=== PATIENT | male | born 1995 ===

== ENCOUNTER 2017-08-17 12:53 | Emergency (ER) | payer OTHER ==
[2017-08-17 13:17] VITALS: BMI 138.8
[2017-08-17 13:22] VITALS: TEMP 97.3
[2017-08-17] MEDS ORDERED: Bacitracin 500 Units/gm Oint Foilpak UD TOP ONE (14:01)
[2017-08-17] MEDS ORDERED: Tdap Vaccine 0.5 ml Vial (10-64 yrs) IM ONE ×2 (14:01→14:51)
[2017-08-17] MEDS ORDERED: Lidocaine 2% Inj (20ml) INFIL ONE (14:01)
[2017-08-17] MEDS ORDERED: Bacitracin 500 Units/gm Oint Foilpak UD ONE (14:29)
[2017-08-17] MEDS ORDERED: Lidocaine Hydrochloride 5 ML INJ ONE (14:29)
--- NOTE | 2017-08-17 15:22 | C.PDOC ---
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 Patient denies numbness, weakness or any other complaints at this time. Time Seen by Provider: 08/17/17 13:30 Chief Complaint (Nursing): Abnormal Skin Integrity History Per: Patient History/Exam Limitations: no limitations Onset/Duration Of Symptoms: Days Current Symptoms Are (Timing): Still Present Past Medical History Reviewed: Historical Data, Nursing Documentation, Vital Signs Vital Signs: Last Vital Signs Temp 97.3 F L 08/17/17 13:17 Pulse 69 08/17/17 15:30 Resp 20 08/17/17 15:30 BP 116/67 08/17/17 15:30 Pulse Ox 100 08/17/17 15:36 - Medical History PMH: No Chronic Diseases Surgical History: No Surg Hx Family History: States: No Known Family Hx - Social History Hx Alcohol Use: No Hx Substance Use: No - Immunization History Hx Tetanus Toxoid Vaccination: No Hx Influenza Vaccination: No Hx Pneumococcal Vaccination: No Review Of Systems Constitutional: Negative for: Fever, Chills Gastrointestinal: Negative for: Nausea, Vomiting Musculoskeletal: Positive for: Arm Pain Skin: Negative for: Rash Neurological: Negative for: Weakness, Numbness Physical Exam - Physical Exam Appears: Non-toxic, No Acute Distress Skin: Warm, Dry, No Rash Head: Atraumatic, Normacephalic Eye(s): bilateral: Normal Inspection Oral Mucosa: Moist Neck: Normal ROM, Supple Extremity: Capillary Refill (<2 seconds), No Deformity, Other (1.5cm lac to volar aspect of left forearm down to subcutaneous fascia. Fascia and Tendon intact) Pulses: Left Radial: Normal, Right Radial: Normal Neurological/Psych: Oriented x3, Normal Motor, Normal Sensation Gait: Steady ED Course And Treatment O2 Sat by Pulse Oximetry: 100 (RA) Pulse Ox Interpretation: Normal Procedure: Wound Repair - Time Performed Time Performed: 14:45 - Time Out Time Out: Side verified, Site verified - Procedure Procedure: Wound Repair: Arm laceration - Consent Obtained Consent obtained: Verbal - Performed by Performed by: Mid-level Provider (Carline) - Indications Indication(s):: Laceration - Location Location:: Left, Arm Shape:: Linear Dimensions Length cm: 1.5 Dimensions width cm: 1 Depth:: Epidermis - Anesthetic Technique Anesthetic Technique: Local Local/Regional Anesthetic:: Lidocaine 2% - Wound Examination Wound Examination:: Other (No tendon involvement) - Debris Debris:: None - Complexity Complexity:: Simple (one layer) (Izzy placed on epidermis) - Patient tolerated procedure Patient Tolerated Procedure:: Well Medical Decision Making Medical Decision Making: Progress: Tetanus vaccine administered Wound was irrigated with pressurized saline. Post-procedure the arm and hand remained neurovascularly intact. Disposition - Disposition Referrals: [facility] [Outside] Disposition: HOME/ ROUTINE Disposition Time: 15:00 Condition: GOOD Additional Instructions: KEEP THE WOUND DRY FOR 2 DAYS. ON THURSDAY WASH THE WOUND TWICE A DAY WITH SOAP AND WATER, THEN APPLY BACITRACIN IZZY TO BE REMOVED WITHIN 14 DAYS. RETURN IF WORSENED. 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 - Scribe Statement The provider has reviewed the documentation as recorded by the Libiaibrianna Blank All medical record entries made by the Libiaibrianna were at my direction and personally dictated by me. I have reviewed the chart and agree that the record accurately reflects my personal performance of the history, physical exam, medical decision making, and the department course for this patient. I have also personally directed, reviewed, and agree with the discharge instructions and disposition.
[2017-08-17 15:30] VITALS: BP 116/67; PULSE 69; RESP 20
[2017-08-17 15:35] VITALS: O2SAT 100
== END 2017-08-17 15:37 | disposition home or self-care (01) ==
LOC: C.ER 12:53
DX: S51.812A Laceration without foreign body of left forearm, initial encounter (principal); W27.8XXA Contact with other nonpowered hand tool, initial encounter; Y92.89 Other specified places as the place of occurrence of the external cause; Y99.0 Civilian activity done for income or pay; Z23 Encounter for immunization

== ENCOUNTER 2017-09-01 17:01 | Emergency (ER) | payer SELFPAY ==
[2017-09-01 17:01] VITALS: BMI 138.8
[2017-09-01 17:14] VITALS: TEMP 98.2
[2017-09-01] MEDS ORDERED: Bacitracin 500 Units/gm Oint Foilpak UD TOP ONE (18:52)
--- NOTE | 2017-09-01 18:53 | C.PDOC ---
History Of Present Illness 21 year old male presents to the ER for staple removal placed on 08/17/17 for laceration repair of this left forearm. Denies redness, swelling or discharge. Denies physical complaints at this time. Time Seen by Provider: 09/01/17 18:19 Chief Complaint (Nursing): Suture/Staple Removal History Per: Patient History/Exam Limitations: no limitations Onset/Duration Of Symptoms: Days Ago, Laceration Current Symptoms Are (Timing): Still Present Location Of Injury: Left: Forearm Recent travel outside of the [place]: No Past Medical History Reviewed: Historical Data, Nursing Documentation, Vital Signs Vital Signs: Last Vital Signs Temp 98.2 F 09/01/17 17:12 Pulse 69 09/01/17 19:11 Resp 17 09/01/17 19:11 BP 101/58 L 09/01/17 19:11 Pulse Ox 98 09/01/17 21:39 Family History: States: Unknown Family Hx - Social History Hx Alcohol Use: No Hx Substance Use: No - Immunization History Hx Tetanus Toxoid Vaccination: No Hx Influenza Vaccination: No Hx Pneumococcal Vaccination: No Review Of Systems Musculoskeletal: Negative for: Arm Pain Skin: Positive for: Other (Sutures in place) Neurological: Negative for: Weakness, Numbness Physical Exam - Physical Exam Appears: Non-toxic, No Acute Distress Skin: Warm, Dry Head: Atraumatic, Normacephalic Eye(s): bilateral: Normal Inspection, EOMI Nose: Normal Oral Mucosa: Moist Chest: Symmetrical Respiratory: No Accessory Muscle Use Extremity: Normal ROM, Capillary Refill (<2 sec), Other (Sutaples in place on left forearm, no sign of infection.) Pulses: Left Radial: Normal, Right Radial: Normal Neurological/Psych: Oriented x3, Normal Speech, Normal Motor, Normal Sensation ED Course And Treatment O2 Sat by Pulse Oximetry: 98 (room air) Pulse Ox Interpretation: Normal Progress Note: Patient tolerated staple removal without any difficulty and is in no pain or distress, will discharge home with instructions to follow up with PMD. Disposition - Disposition Disposition: HOME/ ROUTINE Disposition Time: 18:52 Condition: STABLE Additional Instructions: Follow up with PMD in 1-2 days. Return to ER if area becomes red or has discharge. 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 - Scribe Statement The provider has reviewed the documentation as recorded by the Scribrianna Oneal All medical record entries made by the Libiaibrianna were at my direction and personally dictated by me. I have reviewed the chart and agree that the record accurately reflects my personal performance of the history, physical exam, medical decision making, and the department course for this patient. I have also personally directed, reviewed, and agree with the discharge instructions and disposition.
[2017-09-01] MEDS ORDERED: Bacitracin 500 Units/gm Oint Foilpak UD ONE (19:02)
[2017-09-01 19:12] VITALS: BP 101/58; PULSE 69; RESP 17
[2017-09-01 21:39] VITALS: O2SAT 98
== END 2017-09-01 19:13 | disposition home or self-care (01) ==
LOC: C.ER 17:01
DX: Z48.02 Encounter for removal of sutures (principal)